=== PATIENT | male | born 1980 | race Caucasian/White ===

== ENCOUNTER 2018-06-23 12:14 | Outpatient (CLI) | payer OTHER | END 2018-06-23 12:28 | disposition home or self-care (01) | LOC: RAD 12:14 | DX: J45.998 Other asthma (principal); J01.80 Other acute sinusitis ==

== ENCOUNTER → 2018-07-19 | Outpatient (CLI) | payer OTHER | END | disposition home or self-care (01) | LOC: RAD 12:30 | DX: J20.8 Acute bronchitis due to other specified organisms (principal); J01.90 Acute sinusitis, unspecified ==

== ENCOUNTER → 2019-11-27 | Outpatient (CLI) | payer OTHER | END | disposition home or self-care (01) | LOC: TOM 09:10 | PROVIDERS: ATTEND Internal Medicine Gastroenterology | DX: R10.32 Left lower quadrant pain (principal) ==